=== PATIENT | female | born 1990 | race Caucasian/White ===

== ENCOUNTER 2022-09-19 11:12 | Day surgery (SDC) | payer OTHER ==
[~2022-09-19 11:12] MED LIST: FERRIC CARBOXYMALTOSE 750 MG in SODIUM CHLORIDE 250 ML IVPB ONE
[2022-09-19 16:48] VITALS: BP 130/72; PULSE 61; RESP 18; TEMP 98.5
== END 2022-09-19 12:40 | disposition home or self-care (01) ==
LOC: JONCNONCHE 11:12
PROVIDERS: ATTEND Thoracic Surgery (Cardiothoracic Vascular Surgery)
PROC: 3E033GC Introduction of Other Therapeutic Substance into Peripheral Vein, Percutaneous Approach (ICD-10-PCS; principal; 2022-09-19)
DX: D50.9 Iron deficiency anemia, unspecified (principal)
CPT/HCPCS: 96365; J1439